=== PATIENT | male | born 1980 | race Asian ===

== ENCOUNTER 2021-06-04 08:51 | Outpatient (CLI) | payer BC, OTHER ==
[2021-06-04 09:27] LABS: HEMATOCRIT 45.3 % (36.7-47.1); MEAN CORPUSCULAR HEMOGLOBIN 31.3 uug (23.8-33.4); MEAN CORPUSCULAR VOLUME 91.1 fL (73.0-96.2); PLATELET COUNT (AUTO) 270 K/uL (152-348)
[2021-06-04 09:45] LABS: THYROID STIMULATING HORMONE 1.171 mIU/mL (0.358-3.740)
[2021-06-04 10:19] LABS: BILIRUBIN,TOTAL 0.5 mg/dL (0.2-1.0); CREATININE 0.9 mg/dL (0.6-1.3); TOTAL PROTEIN, SERUM 7.9 g/dL (6.4-8.2); URIC ACID 7.9 mg/dL (3.5-7.2)
[2021-06-05 15:06] LABS: *TESTOSTERONE, SERUM 233 ng/dL (264-916)
== END 2021-06-04 23:59 | disposition home or self-care (01) ==
LOC: LAB 08:51
PROVIDERS: ATTEND Legal Medicine
DX: E11.9 Type 2 diabetes mellitus without complications (principal); E55.9 Vitamin D deficiency, unspecified; D64.9 Anemia, unspecified; E78.5 Hyperlipidemia, unspecified; Z00.00 Encounter for general adult medical examination without abnormal findings
CPT/HCPCS: 36415; 70030-TC; 82306; 82746; 83550; 84402; 84403; 84443; 84550; 85025